=== PATIENT | female | born 1930 | race Caucasian/White ===

== ENCOUNTER → 2017-05-16 | Outpatient (CLI) | payer MEDICARE ==
[~2017-05-16] MED LIST: ATENOLOL25 MG PO; LEVOTHROID25 MCG PO; PEPCID20 MG PO
== END ==
LOC: MAMMO 08:11
PROVIDERS: ATTEND Internal Medicine
DX: Z12.31 Encounter for screening mammogram for malignant neoplasm of breast (principal)

== ENCOUNTER → 2018-05-05 | Outpatient (CLI) | payer MEDICARE | LOC: MAMMO 10:03 | PROVIDERS: ATTEND Family Medicine | DX: Z12.31 Encounter for screening mammogram for malignant neoplasm of breast (principal) ==

== ENCOUNTER → 2019-05-06 | Outpatient (CLI) | payer MEDICARE | LOC: MAMMO 08:27 | PROVIDERS: ATTEND Family Medicine | DX: Z12.31 Encounter for screening mammogram for malignant neoplasm of breast (principal) ==